=== PATIENT | female | born 1955 | race Caucasian/White ===

== ENCOUNTER 2018-07-25 07:38 | Inpatient (IN) | payer OTHER ==
[2018-07-25] MEDS ORDERED: NA CHLORIDE 0.9% 500 ML ONE (08:09)
[2018-07-25 08:36] LABS: Absolute Lymphocytes (CBC) 0.2 K/uL (0.7-4.9); Absolute Neutrophil 19.7 K/uL (1.8-8.0); Basophils % 0.2 % (0-1.3); Hematocrit 50.4 % (36.0-45.0); Lymphocytes % 1.2 % (15.3-44.8); MCH 30.9 pg (27.0-35.0); MCV 92.7 fL (80-100); MPV 8.1 fL (7.6-11.3); Monocytes % 4.8 % (3.3-12.3); RBC Red Blood Cell Count 5.44 M/uL (3.86-4.86)
[2018-07-25 08:47] LABS: Albumin 3.7 g/dL (3.4-5.0); Bilirubin Direct 0.3 mg/dL (0-0.2); Bilirubin Total 0.9 mg/dL (0.2-1.0); Potassium 4.8 mmol/L (3.5-5.1); Protein, Total 8.1 g/dL (6.4-8.2)
--- NOTE | 2018-07-25 09:31 | RAD REPORT ---
EXAM DESCRIPTION: CT - Abdomen Pelvis Wo Contrast - 07/25/2018 9:16 am CLINICAL HISTORY: Abdominal pain. vomiting;Abd pain COMPARISON: Abdomen Pelvis W Contrast dated 11/22/2017; CT ABD PELVIS W CONTRAST dated 09/05/2013; CT ABD PELVIS W CONTRAST dated 06/06/2007 TECHNIQUE: CT imaging of the abdomen and pelvis was performed without contrast. Solid organ, bowel a nd vascular assessment is limited due to lack of IV and oral contrast. All CT scans are performed using dose optimization technique as appropriate and may include automated exposure control or mA/KV adjustment according to patient size. FINDINGS: Linear subsegmental atelectasis is present in both lung bases posteriorly. The liver, spleen, pancreas, adrenal glands and kidneys are within normal limits for a limited non-co ntrast examination. Free intraperitoneal air is not suspected. Stool is present in a few mildly prominent jejunal small b owel loops in the central abdomen which are slightly thickened and slightly dilated. No intra-abdomin al abscess. Trace pelvic free fluid. The majority of the colon is surgically absent with a right lowe r quadrant ostomy site noted. No pneumatosis coli seen. The osseous structures are within normal limits. IMPRESSION: There is prominent retained stool in several jejunal loops in the central abdomen which are slightly thickened and slightly dilated. This may indicate a mild mechanical obstruction is prese nt in this region. No severe bowel obstruction is suspected, however. A limited non-contrast examination was performed as detailed.
--- NOTE | 2018-07-25 10:08 | EKG ---
Test Date: 2018-07-25 Test Time: 07:52:19 Communications Supervisor: TRISHA MEASUREMENT RESULTS: Intervals: Rate: 97 MD: 118 QRSD: 78 QT: 376 QTc: 477 Saxe: P: 71 MD: 118 QRS: 74 T: 74 INTERPRETIVE STATEMENTS: Sinus rhythm with premature atrial complexes Otherwise normal ECG Compared to ECG 02/05/2017 07:21:06 Atrial premature complex(es) now present Electronically Signed On 07-25-18 10:08:01 TAX CREDIT LEASING CONSULTANT by Theo Rubin
--- NOTE | 2018-07-25 10:24 | ER ---
Nurse's Notes [facility] Name: Millie Brannon Age: 62 yrs Sex: Female : 1955 Arrival Date: 07/25/2018 Time: 07:47 Bed 18 Private MD: Diagnosis: Abdominal and pelvic pain;Mechanical Bowel Obstruction Presentation: 07/25 07:48 Presenting complaint: EMS states: She vomited 3-4 times last night since 1900 and has jl7 had some diarrhea in her colostomy bag. Transition of care: patient was received from another setting of care ([facility]), [facility]. Onset of symptoms was July 24, 2018 at 19:00. Risk Assessment: Do you want to hurt yourself or someone else? Patient reports no desire to harm self or others. Initial Sepsis Screen: Does the patient meet any 2 criteria? No. Patient's initial sepsis screen is negative. Does the patient have a suspected source of infection? No. Patient's initial sepsis screen is negative. Care prior to arrival: None. 07:48 Method Of Arrival: EMS: [employer] [facility] emergency room 07:48 Acuity: BANDAR 3 jl7 Triage Assessment: 07:55 General: Appears in no apparent distress. uncomfortable, ill, Behavior is calm, jl7 cooperative. Pain: Denies pain. EENT: No signs and/or symptoms were reported regarding the EENT system. Neuro: Level of Consciousness is awake, alert, obeys commands, Oriented to person, place, time, situation. Cardiovascular: Patient's skin is warm and dry. Respiratory: Airway is patent Respiratory effort is even, unlabored, Respiratory pattern is regular, symmetrical. GI: Bowel sounds present X 4 quads. Reports diarrhea, nausea, vomiting. : No signs and/or symptoms were reported regarding the genitourinary system. Derm: Skin is pink, warm \T\ dry. Musculoskeletal: No signs and/or symptoms reported regarding the musculoskeletal system. Historical: - Allergies: 07:55 Lyrica; jl7 07:55 PENICILLINS; jl7 - Home Meds: 07:55 aspirin 81 mg Oral chew 1 tab once daily [Active]; atorvastatin 20 mg Oral tab 1 tab jl7 once daily [Active]; benztropine 1 mg Oral tab 1 tab 2 times per day [Active]; cholecalciferol (vitamin D3) 50,000 unit Oral cap [Active]; Cymbalta 60 mg Oral cpDR 2 caps once daily [Active]; folic acid 1 mg Oral tab 1 tab once daily [Active]; Latuda 80 mg oral tab [Active]; levothyroxine 125 mcg tab 1 tab once daily [Active]; melatonin 3 mg Oral tab bedtime [Active]; [place] 5-325 mg Oral tab 1 tab twice a day [Active]; - PMHx: 07:55 Myocardial infarction; Chronic pain; Hyperlipidemia; Hypertension; Depression; CHF; jl7 Anxiety; chronic kidney disease; Bipolar disorder; colostomy; Hypothyroidism; - Immunization history:: Adult Immunizations up to date. - Social history:: Smoking status: Patient uses tobacco products, smokes one pack cigarettes per day. - Ebola Screening: : No symptoms or risks identified at this time. Screenin:58 Abuse screen: Denies threats or abuse. Denies injuries from another. Nutritional jl7 screening: No deficits noted. Tuberculosis screening: No symptoms or risk factors identified. 08:00 Fall Risk IV access (20 points). Gait- Weak (10 pts.). Mental Status- Oriented to own jl7 ability (0 pts). Total Huynh Fall Scale indicates Low Risk Score (25-44 pts). Fall prevention measures have been instituted. Side Rails Up X 2 Placed close to Nursing Station Frequent Obs/Assesments occuring As available Patient and Family Educated on Fall Prevention Program and strategies. Assessment: 07:58 General: See triage assessment. jl7 09:00 Reassessment: Patient appears in no apparent distress at this time. Patient and/or jl7 family updated on plan of care and expected duration. Pain level reassessed. Patient is alert, oriented x 3, equal unlabored respirations, skin warm/dry/pink. 10:00 Reassessment: Patient appears in no apparent distress at this time. No changes from jl7 previously documented assessment. Patient and/or family updated on plan of care and expected duration. Pain level reassessed. Patient is alert, oriented x 3, equal unlabored respirations, skin warm/dry/pink. 11:00 Reassessment: No changes from previously documented assessment. Pt laying in bed with jl7 eyes closed, respiration even and unlabored, no signs of distress noted at this time. 12:12 Reassessment: Patient appears in no apparent distress at this time. Patient and/or jl7 family updated on plan of care and expected duration. Pain level reassessed. Patient is alert, oriented x 3, equal unlabored respirations, skin warm/dry/pink. Dr. Rodríguez at bedside. 13:00 Reassessment: Patient appears in no apparent distress at this time. Patient and/or jl7 family updated on plan of care and expected duration. Pain level reassessed. Patient is alert, oriented x 3, equal unlabored respirations, skin warm/dry/pink. 14:04 Reassessment: No changes from previously documented assessment. Patient and/or family jl7 updated on plan of care and expected duration. Pain level reassessed. Patient is alert, oriented x 3, equal unlabored respirations, skin warm/dry/pink. Vital Signs: 07:55 BP 130 / 58; Pulse 93; Resp 18 S; Temp 99.3(O); Pulse Ox 91% on R/A; Weight 90.72 kg jl7 (R); Pain 0/10; 08:31 BP 116 / 97; Pulse 92; Resp 14 S; Pulse Ox 97% on R/A; jl7 09:30 BP 137 / 81; Pulse 89; Resp 16 S; Pulse Ox 94% on R/A; jl7 12:24 BP 152 / 64; Pulse 71; Resp 16 S; Pulse Ox 100% on R/A; jl7 14:00 BP 130 / 65; Pulse 101; Resp 18 S; Temp 100.2(O); Pulse Ox 98% on R/A; jl7 ED Course: 07:47 Patient arrived in ED. jl7 07:48 Shantanu Davey MD is Attending Physician. kdr 07:49 Triage completed. jl7 07:55 Arm band placed on right wrist. jl7 07:58 Patient has correct armband on for positive identification. Placed in gown. Bed in low jl7 position. Call light in reach. Side rails up X2. Pulse ox on. NIBP on. 07:59 EKG done, by copier technician. reviewed by Shantanu Davey MD. tc 08:05 Radiology exam delayed due to lab results not completed at this time. (BUN/Creatinine). 08:18 Teja Velásquez, KARO is Primary Nurse. jl7 08:19 Initial lab(s) drawn, by me, sent to lab. Inserted saline lock: 22 gauge in left jl7 antecubital area, using aseptic technique. Blood collected. 08:51 Notified ED physician of a critical lab result(s). WBC=21. iw 09:18 Abdomen In Process Unspecified. EDMS 10:19 Lakshmi Martinez MD is Hospitalizing Provider. kdr 10:49 Notified ED physician of a critical lab result(s). 18% bands. dm5 11:13 Hospitalizing Provider role handed off by Lakshmi Martinez MD bd 11:13 Shantanu Davey MD is Hospitalizing Provider. bd 11:13 Hospitalizing Provider role handed off by Shantanu Davey MD bd 11:13 Jefferson Rodríguez MD is Hospitalizing Provider. bd 11:13 Hospitalizing Provider role handed off by Jefferson Rodríguez MD bd 11:13 Shantanu Davey MD is Hospitalizing Provider. bd 11:14 Hospitalizing Provider role handed off by Shantanu Davey MD bd 11:14 Jefferson Rodríguez MD is Hospitalizing Provider. bd 14:04 No provider procedures requiring assistance completed. Patient admitted, IV remains in jl7 place. intact, No redness/swelling at site. Administered Medications: 08:05 Drug: NS 0.9% 500 ml Volume: 500 ml; Route: IV; Rate: 1 bolus; Site: left antecubital; jl7 08:45 Follow up: IV Status: Completed infusion jl7 Outcome: 10:21 Decision to Hospitalize by Provider. kdr 14:33 Admitted to Tele accompanied by tech, via wheelchair, room 405, with chart, Report jl7 called to KARO Zaman 14:33 Condition: stable 14:33 Discharge instructions given to patient, Instructed on the need for admit, Demonstrated understanding of instructions. 14:36 Patient left the ED. jl7 Signatures: Dispatcher [employer] EDMS Joanne Fraga Deana, RN KARO dmShantanu Jara MD MD kdr Hagler, Ervin eh Williams, Irene, RN RN Rachael Muir, jet ski mechanic EKG Teja Tong RN RN jl7
--- NOTE | 2018-07-25 10:24 | EDPHYS ---
Physician Documentation [facility] Name: Millie Brannon Age: 62 yrs Sex: Female : 1955 Arrival Date: 07/25/2018 Time: 07:47 Bed 18 Private MD: ED Physician Shantanu Davey HPI: 07/25 07:59 This 62 yrs old Female presents to ER via EMS with complaints of Vomiting. kdr 07:59 The patient presents to the emergency department with nausea, that is mild, vomiting, kdr that is intermittent, abdominal pain, of the umbilical area. Onset: The symptoms/episode began/occurred gradually, last night. Possible causes: unknown. The symptoms are aggravated by nothing. The symptoms are alleviated by nothing. Associated signs and symptoms: Pertinent positives: abdominal pain, nausea, vomiting, Pertinent negatives: anorexia, belching, constipation, diarrhea, dysuria, fever, flatulence, GI bleeding, hematuria, vaginal discharge. Severity of symptoms: At their worst the symptoms were moderate in the emergency department the symptoms have improved mildly. The patient has not experienced similar symptoms in the past. The patient has not recently seen a physician. Historical: - Allergies: 07:55 Lyrica; jl7 07:55 PENICILLINS; jl7 - Home Meds: 07:55 aspirin 81 mg Oral chew 1 tab once daily [Active]; atorvastatin 20 mg Oral tab 1 tab jl7 once daily [Active]; benztropine 1 mg Oral tab 1 tab 2 times per day [Active]; cholecalciferol (vitamin D3) 50,000 unit Oral cap [Active]; Cymbalta 60 mg Oral cpDR 2 caps once daily [Active]; folic acid 1 mg Oral tab 1 tab once daily [Active]; Latuda 80 mg oral tab [Active]; levothyroxine 125 mcg tab 1 tab once daily [Active]; melatonin 3 mg Oral tab bedtime [Active]; Roy 5-325 mg Oral tab 1 tab twice a day [Active]; - PMHx: 07:55 Myocardial infarction; Chronic pain; Hyperlipidemia; Hypertension; Depression; CHF; jl7 Anxiety; chronic kidney disease; Bipolar disorder; colostomy; Hypothyroidism; - Immunization history:: Adult Immunizations up to date. - Social history:: Smoking status: Patient uses tobacco products, smokes one pack cigarettes per day. - Ebola Screening: : No symptoms or risks identified at this time. ROS: 07:59 Constitutional: Negative for fever, chills, and weight loss, Eyes: Negative for injury, kdr pain, redness, and discharge, ENT: Negative for injury, pain, and discharge, Neck: Negative for injury, pain, and swelling, Cardiovascular: Negative for chest pain, palpitations, and edema, Respiratory: Negative for shortness of breath, cough, wheezing, and pleuritic chest pain, Back: Negative for injury and pain, : Negative for injury, bleeding, discharge, and swelling, MS/Extremity: Negative for injury and deformity, Skin: Negative for injury, rash, and discoloration, Neuro: Negative for headache, weakness, numbness, tingling, and seizure activity. Psych: Negative for depression, anxiety, suicide ideation, homicidal ideation, and hallucinations, Allergy/Immunology: Negative for hives, rash, and allergies, Endocrine: Negative for neck swelling, polydipsia, polyuria, polyphagia, and marked weight changes, Hematologic/Lymphatic: Negative for swollen nodes, abnormal bleeding, and unusual bruising. 07:59 Abdomen/GI: Positive for abdominal pain, nausea and vomiting, Negative for diarrhea, constipation, abdominal cramps, abdominal distension, anorexia, dysphagia, hematemesis, black/tarry stool, rectal pain, rectal bleeding, bowel incontinence. Exam: 07:59 Constitutional: This is a well developed, well nourished patient who is awake, alert, kdr and in no acute distress. Head/Face: Normocephalic, atraumatic. Eyes: Pupils equal round and reactive to light, extra-ocular motions intact. Lids and lashes normal. Conjunctiva and sclera are non-icteric and not injected. Cornea within normal limits. Periorbital areas with no swelling, redness, or edema. Neck: Trachea midline, no thyromegaly or masses palpated, and no cervical lymphadenopathy. Supple, full range of motion without nuchal rigidity, or vertebral point tenderness. No Meningismus. Chest/axilla: Normal chest wall appearance and motion. Nontender with no deformity. No lesions are appreciated. Cardiovascular: Regular rate and rhythm with a normal S1 and S2. No gallops, murmurs, or rubs. Normal PMI, no JVD. No pulse deficits. Respiratory: Lungs have equal breath sounds bilaterally, clear to auscultation and percussion. No rales, rhonchi or wheezes noted. No increased work of breathing, no retractions or nasal flaring. Back: No spinal tenderness. No costovertebral tenderness. Full range of motion. Skin: Warm, dry with normal turgor. Normal color with no rashes, no lesions, and no evidence of cellulitis. MS/ Extremity: Pulses equal, no cyanosis. Neurovascular intact. Full, normal range of motion. Neuro: Awake and alert, GCS 15, oriented to person, place, time, and situation. Cranial nerves II-XII grossly intact. Motor strength 5/5 in all extremities. Sensory grossly intact. Cerebellar exam normal. Normal gait. Psych: Awake, alert, with orientation to person, place and time. Behavior, mood, and affect are within normal limits. 07:59 Abdomen/GI: Inspection: abdomen appears normal, obese Bowel sounds: active, all quadrants, Palpation: mild abdominal tenderness, in the umbilical area. Vital Signs: 07:55 BP 130 / 58; Pulse 93; Resp 18 S; Temp 99.3(O); Pulse Ox 91% on R/A; Weight 90.72 kg jl7 (R); Pain 0/10; 08:31 BP 116 / 97; Pulse 92; Resp 14 S; Pulse Ox 97% on R/A; jl7 09:30 BP 137 / 81; Pulse 89; Resp 16 S; Pulse Ox 94% on R/A; jl7 12:24 BP 152 / 64; Pulse 71; Resp 16 S; Pulse Ox 100% on R/A; jl7 14:00 BP 130 / 65; Pulse 101; Resp 18 S; Temp 100.2(O); Pulse Ox 98% on R/A; jl7 MDM: 07:59 Data reviewed: vital signs, nurses notes, lab test result(s), radiologic studies. kdr Counseling: I had a detailed discussion with the patient and/or guardian regarding: the historical points, exam findings, and any diagnostic results supporting the discharge/admit diagnosis, lab results, radiology results. 10:21 Patient medically screened. kdr 07/25 07:59 Order name: Basic Metabolic Panel; Complete Time: 10:09 kdr 07/25 07:59 Order name: CBC with Diff; Complete Time: 12:59 kdr 07/25 07:59 Order name: Creatinine for Radiology; Complete Time: 10:09 [facility] 07/25 07:59 Order name: Hepatic Function; Complete Time: 10: [facility] 07/25 07:59 Order name: Lipase; Complete Time: 10: [facility] 07/25 10:49 Order name: Manual Differential; Complete Time: 12:59 [facility] 07/25 07:59 Order name: IV Saline Lock; Complete Time: 08:19 [facility] 07/25 07:59 Order name: Labs collected and sent; Complete Time: 08:19 [facility] 07/25 07:59 Order name: EKG - Nurse/Tech; Complete Time: 07:59 [facility] 07/25 08:21 Order name: EKG Electrocardiogram [facility] 07/25 09:03 Order name: Abdomen ; Complete Time: 10:09 [facility] Administered Medications: 08:05 Drug: NS 0.9% 500 ml Volume: 500 ml; Route: IV; Rate: 1 bolus; Site: left antecubital; jl7 08:45 Follow up: IV Status: Completed infusion jl7 Disposition: 07/25/18 10:21 Hospitalization ordered by Jefferson Rodríguez for Inpatient Admission. Preliminary diagnosis are Abdominal and pelvic pain, Mechanical Bowel Obstruction. - Bed requested for Telemetry/MedSurg (Inpatient). - Status is Inpatient Admission. jl7 - Condition is Fair. - Problem is new. - Symptoms are unchanged. UTI on Admission? No Signatures: Dispatcher [employer] [facility] Joanne Fraga Kevin, MD MD kdr Teja Velásquez RN RN jl7 Corrections: (The following items were deleted from the chart) 09:02 07:59 Abdomen Pelvis W Con+CT.RAD.BRZ ordered. [facility] : 10:21 Hospitalization Ordered by Lakshmi Martinez MD for Inpatient Admission. Preliminary bd diagnosis is Abdominal and pelvic pain; Mechanical Bowel Obstruction. Bed requested for Telemetry/MedSurg (Inpatient). Status is Inpatient Admission. Condition is Fair. Problem is new. Symptoms are unchanged. UTI on Admission? No. kdr 13:39 11:14 07/25/2018 10:21 Hospitalization Ordered by Jefferson Rodríguez MD for Inpatient bd Admission. Preliminary diagnosis is Abdominal and pelvic pain; Mechanical Bowel Obstruction. Bed requested for Telemetry/MedSurg (Inpatient). Status is Inpatient Admission. Condition is Fair. Problem is new. Symptoms are unchanged. UTI on Admission? No. bd 14:36 13:39 07/25/2018 10:21 Hospitalization Ordered by Jefferson Rodríguez MD for Inpatient jl7 Admission. Preliminary diagnosis is Abdominal and pelvic pain; Mechanical Bowel Obstruction. Bed requested for Telemetry/MedSurg (Inpatient). Status is Inpatient Admission. Condition is Fair. Problem is new. Symptoms are unchanged. UTI on Admission? No. bd
[2018-07-25 10:48] LABS: Blood Morphology Comment NOT SEEN (NOT SEEN); Platelet Estimate ADEQ
[2018-07-25] MEDS ORDERED: ONDANSETRON 4 MG/2 ML VIAL IV PRN (11:39)
[2018-07-25] MEDS ORDERED: ALBUTEROL 2.5 MG/3 ML NEB SOL NEB PRN (11:39)
[2018-07-25] MEDS ORDERED: MORPHINE 4 MG/ML SYR IV PRN (11:39)
[2018-07-25] MEDS ORDERED: IPRATROPIUM BROM 0.5MG/2.5ML NEB PRN (11:39)
[2018-07-25] MEDS ORDERED: ACETAMINOPHEN 650MG/RECT SUPP PR PRN (11:39)
[2018-07-25 15:44] VITALS: BMI 36.6
[2018-07-25] MEDS ORDERED: NA CHLORIDE 0.9% 1,000 ML IV ONE (16:01)
[2018-07-25] MEDS: D5 0.45 NS 1,000 ML IV SCH ×2 (16:11→22:00)
[2018-07-25] MEDS: CIPROFLOXACIN 400mg IV 400 MG/200 ML BAG IV SCH ×2 (16:11→21:23)
[2018-07-25] MEDS: METRONIDAZOLE 500mg IVPB 500 MG/100 ML BAG IV SCH (17:21)
--- NOTE | 2018-07-25 18:50 | P.INFCA ---
Sepsis Focused Assessment - Sepsis Screen Result Severe Sepsis: Negative Septic Shock: Negative - Evaluation Current stage of sepsis: Severe sepsis - Vital Signs Reviewed: Yes Temperature: 99.3 F Heart rate: 95 Blood Pressure: 120/69 Respiratory Rate: 20 O2 Sat by Pulse Oximetry: 92 - Examination Date exam was performed: 07/25/18 Time exam was performed: 18:49 Heart: Regular rate/rhythm, S1, S2 Lungs: Dull, Decreased breath sounds (at bases) Peripheral pulses: 3+ Normal Peripheral pulse location: Radial Capillary refill: <2 Seconds Skin examination: Normal turgor Comments: Elevated lactate. Bolus of IVFs given
[2018-07-25] MEDS: MORPHINE 4 MG/ML SYR IV PRN (21:23)
--- NOTE | 2018-07-26 00:06 | HP ---
Date of Admission: 07/25/2018 Chief Complaint: Abdomina pain, nausea, vomiting. Dynamics Ax Technical Architect: Dr. Francisco, General Surgery. History Of Present Illness: The patient is a 62-year-old female with past medical historyof COPD, CH F, hypertension, chronic kidney disease, bipolar disorder, hypothyroidism, and history of colostomy w ith status post colon resection in 2010. The patient is a resident of long term, was in her usual state of health until the day prior to admission. The patient experienced an abdominal pain which w as sharp, nonradiating, generalized, associated with nausea and vomiting. The patient's symptoms are constant, moderate, progressively worsening. She came into the ER for further evaluation. Upon arr ival, she had a white count of 18,000 with bands. She did have some elevated creatinine at 1.7, whic h is above her baseline. CT scan of the abdomen was done, which showed a partial mechanical small nolvia wel obstruction, trace pelvic free fluid, majority of colon absent with right lower quadrant ostomy s ite noted. The patient was then referred for admission. When seen in the ER, she was awake, alert, oriented x3, some moderate distress. Past Medical History: COPD, CHF, hypertension, chronic kidney disease, bipolar disorder, hypothyroid ism. Past Surgical History: Colostomy due to colon perforation. Allergies: TO PENICILLIN AND PREGABALIN. Medications: List reviewed. Social History: The patient denies any illicit drug use, alcohol use. The patient does smoke about half a pack per day. The patient is a resident of long term. Family History: Mother had heart disease. Review of Systems: Ten point system reviewed, negative except as per HPI. Physical Examination: Vital Signs: Blood pressure 130/58, pulse 93, respirations 18, O2 91% on room air, temperature 99.3. General: Awake, alert, oriented x3. Well-appearing female, in some moderate distress due to pain. Morbidly obese. HEENT: Normocephalic, atraumatic. PERRLA, EOMI. Dry mucous membranes. Oropharynx is clear. The p atient is edentulous. Conjunctiva anicteric. Neck: Supple. No JVD. Trachea midline. CV: S1, S2. Regular rate and rhythm. Peripheral pulses are present. No murmurs. Gastrointestinal: Abdomen is soft. Tenderness to palpation. Colostomy does have some stool. Bowel sounds hypoactive. No rebound or guarding. Extremities: No clubbing, cyanosis. The patient does have some trace pedal edema. Neuro: Cranial nerves 2 through 12 intact grossly. No focal neurological deficit. Speech is normal . Skin: No rashes. Normal skin turgor. Psych: Mood is okay. Affect is full. Insight and judgment are fair. Laboratory Data: Sodium 135, potassium 4.8, chloride 96, CO2 28, BUN 14, creatinine 1.7, glucose 142 , calcium 9.3, lipase 74. WBC 21, H and H 16.8/50.4, platelets 340, neutrophils 93%, bands 18. CT s can abdomen and pelvis without contrast shows probable retained stool and several jejunal loops in ce ntral abdomen, which are slightly thickened and slightly dilated, may indicate mild mechanical obstru ction. No severe bowel obstruction is suspected, however. Majority of colon surgically absent with a right quadrant ostomy site noted. No pneumatosis coli. Trace pelvic free fluid. Linear subsegmen joo atelectasis present in both lungs posteriorly. EKG shows sinus rhythm with premature atrial complexes at a rate of 97. Assessment And Plan: A 62-year-old female with: 1.Mechanical small bowel obstruction. We will keep her n.p.o. We will hold off on NG tube placemen t. We will continue with conservative treatment. Continue IV fluids and pain medications. Dr. Brandon kamara with General Surgery team consulted. The patient does have history of major abdominal surgery in the past and recurrent small bowel obstructions as well. 2.Acute on chronic kidney disease stage 3. 3.Neutrophilic leukocytosis with bandemia, likely related to colon source. We will add IV antibioti cs and we will monitor, but the patient is not septic at this point. 4.Chronic bronchitis. We will continue bronchodilators as needed. 5.Congestive heart failure. Echocardiogram from 2017 show EF of 53%, diastolic dysfunction, chronic . 6.Essential hypertension, stable. Resume home medications as appropriate. 7.Bipolar disorder. 8.Hypothyroidism. Continue medications once the patient is tolerating p.o. 9.Morbid obesity. 10.Gastrointestinal and deep venous thrombosis prophylaxis addressed. Plan: Admit the patient to [facility], [facility] as inpatient. Length of stay greater than 48 hours. /JUAN Voice ID: [id number]
[2018-07-26] MEDS: METRONIDAZOLE 500mg IVPB 500 MG/100 ML BAG IV SCH ×3 (00:37→17:14)
[2018-07-26] MEDS: D5 0.45 NS 1,000 ML IV SCH ×2 (00:39→08:00)
[2018-07-26] MEDS: MORPHINE 4 MG/ML SYR IV PRN ×2 (01:25→06:20)
[2018-07-26 02:44] LABS: Urine Appearance CLOUDY; Urine Bilirubin NEGATIVE (NEG); Urine Blood TRACE (NEG); Urine Color YELLOW; Urine Glucose NEGATIVE (NEG); Urine Protein NEGATIVE (NEG); Urine Specific Gravity 1.015 (1.005-1.030); Urine Urobilinogen 0.2 mg/dL (0.2-1.0); Urine pH 5.5 (5.0-7.0)
[2018-07-26 02:47] LABS: Urine Microscopic Reflex ORDER UMIC
[2018-07-26 02:56] LABS: Urine Culture Reflex Order NOT NEEDED
[2018-07-26 02:57] LABS: Urine Amorphous Sediment 3+ /HPF (NONE SEEN); Urine Bacteria 20-50 /HPF (<20); Urine RBC <5 /HPF (NONE SEEN)
[2018-07-26 06:39] LABS: Absolute Lymphocytes (CBC) 1.2 K/uL (0.7-4.9); Absolute Monocytes 0.6 K/uL (0.1-1.3); Absolute Neutrophil 7.8 K/uL (1.8-8.0); Basophils % 0.2 % (0-1.3); Eosinophils % 0.3 % (0-4.4); Hematocrit 38.6 % (36.0-45.0); MCH 31.1 pg (27.0-35.0); MCV 93.7 fL (80-100); MPV 7.8 fL (7.6-11.3); Monocytes % 6.1 % (3.3-12.3); RBC Red Blood Cell Count 4.12 M/uL (3.86-4.86)
[2018-07-26 06:43] LABS: Albumin 2.8 g/dL (3.4-5.0); Bilirubin Total 0.6 mg/dL (0.2-1.0); Magnesium 2.1 mg/dL (1.8-2.4); Phosphorus 3.4 mg/dL (2.5-4.9); Potassium 3.9 mmol/L (3.5-5.1); Protein, Total 6.3 g/dL (6.4-8.2)
[2018-07-26] MEDS: CIPROFLOXACIN 400mg IV 400 MG/200 ML BAG IV SCH ×2 (09:04→22:12)
[2018-07-26] MEDS ORDERED: FUROSEMIDE 40 MG/4 ML VIAL IV ONE (11:33)
--- NOTE | 2018-07-26 15:34 | CON ---
Date of Consultation: 07/25/2018 Brief History Of Present Illness: The patient is a 62-year-old female with a past medical history of COPD; CHF; hypertension; CKD; bipolar disorder; hypothyroidism; and history of colostomy, status post colon resection in 2018; who was at a skilled nursing in her usual state of health until the day of prior authorization. She had some sharp abdominal pain, nausea, vomiting, and felt dehydrate d. The pain got significantly worse over the course of the day. She came to the ER with the above-s tated complaint. She had a white count at that time and was admitted with abdominal pain as describe d above. Past Medical History: Significant for COPD, CHF, hypertension, CKD, bipolar disorder, hypothyroidism as above. Past Surgical History: Colostomy due to colon perforation. She is unsure of any details regarding t his. Allergies: PENICILLIN AND PREGABALIN. Medications: Include at home: Aspirin, Lipitor, benztropine, vitamin D3, Cymbalta, folic acid, Norc o, Synthroid, Latuda, melatonin. Social History: She denies alcohol or recreational drug use. She does admit to a half pack of Rambus ng per day. She lives in a skilled nursing. Family History: Mother had heart disease. Review of Systems: A 10-point review of systems other than HPI, denies. Physical Examination: Vital Signs: At the time of my examination, her BMI is 36.6. Blood pressure of 137/81, respiratory rate is 16, pulse is 89, temperature 99.3. General: She is awake, alert, oriented. Psychiatric: She is appropriate and conversive. HEENT: She is normocephalic. Her mucous membranes are somewhat dry. Oropharynx is clear. Dentitio n is poor. Neck: Supple. No JVD. Chest: Normal expansion and excursion. Abdomen: Focused examination of the abdomen shows diffuse abdominal pain over an obese abdomen. She has a right lower quadrant colostomy, which is currently functioning and the bag is almost completel y full at this time. She states that it has increased its output since being brought to the hospital . She has diffuse abdominal pain with no peritoneal signs. There is no focal peritonitis. No rebou nd. No guarding. Well-healed surgical scars are evident. Laboratory Data: She had a laboratory exam, which revealed a white blood cell count of 21.0, hemoglo bin 16.8 over hematocrit of 50.4, platelet count is 340, neutrophils are 93%, her bands were 18. Sod ium 135, potassium 4.8, chloride of 96, carbon dioxide 28, BUN 14, creatinine 1.7, glucose is 142. L actic acid was 1.9. She had a CT scan performed of the abdomen and pelvis. The official indication is prominent retained stool in several jejunal loops in the central abdomen, which are slightly thick ened and slightly dilated. This may indicate a mechanical bowel obstruction in the presence of this region. No severe bowel obstruction is suspected however. Assessment And Plan: This is a 62-year-old female, who comes in with what appears to be a partial sm all-bowel obstruction versus ileus due to metabolic and medical comorbidities. 1.IV fluid hydration. I believe she is dehydrated. 2.Electrolyte management. 3.Serial abdominal exams. 4.I do not find the patient has a surgical indication at this time. We will follow her clinically. Continue n.p.o. at this point, and start clear liquid diet once she advances and improves with the a bdominal pain and continues to have improved output from her ostomy. VERONICA/JUAN Voice ID: [id number] Report ID: [id number]
--- NOTE | 2018-07-26 15:55 | PN ---
Subjective: The patient seen and examined, chart reviewed, and case discussed with RN and Dr. Nikki max. The patient stated that her pain is significantly improved. She is passing gas. She was able to tolerate clear liquid. Review of Systems: Negative except as above. Medications: List reviewed. Physical Examination: Vital Signs: Temperature 97.2, heart rate 82, blood pressure 122/57, respirations 20, O2 92% on 3 L via nasal cannula. General: Awake, alert, oriented x3. Appears older than stated age. Ill-appearing female, obese. CV: S1 and S2. Peripheral pulses present. Regular rate and rhythm. No murmurs. Respiratory: Diminished breath sounds at the bases. No wheezing. No stridor. Gastrointestinal: Abdomen is soft. No tenderness to palpation. Mild distention. Colostomy in plac e with stool. Extremities: No clubbing, cyanosis, edema. Neurologic: Nonfocal. Laboratory Data: Sodium 137, potassium 3.9, chloride 104, CO2 27, BUN 18, creatinine is 1.2, glucose 120, calcium 8, phosphorus 3.4, magnesium 2.1. WBC 9.6, H and H 12.8 and 38.6, platelets 257, neutr ophils 81%, no bands. Urine culture pending. C diff pending. Blood culture is also pending. Assessment: A 62-year-old female with: 1.Mechanical small bowel obstruction. We will start on full liquid diet and advance as tolerated. The patient is passing gas through the ostomy and has stool production. Appreciate Dr. Francisco's inp ut. Continue with conservative management, likely secondary to adhesions. 2.Joixz-rj-smmnfgs kidney disease stage 3. Creatinine is normalized. GFR is 46. We will continue to monitor creatinine. We will discontinue IV fluids as the patient is tolerating diet. 3.Obesity, BMI 36.6. 4.Bilateral atelectasis. We will continue incentive spirometer. 5.Sepsis. Procalcitonin was elevated. The patient is hypotensive, needed IV fluid resuscitation an d clearly has some colitis along with small bowel obstruction. We will continue with empiric antibio tics. Cultures are pending. Improving, white blood cell count is normalized. 6.Chronic obstructive pulmonary disease with chronic bronchitis. Continue nebulizers p.r.n. 7.Congestive heart failure, ejection fraction 53%, diastolic dysfunction, [id number]. The pat ient is retaining some fluid. We will give 40 mg of Lasix IV and monitor I's and O's. 8.Essential hypertension, stable. 9.Bipolar disorder. 10.Hypothyroidism. We will resume Synthroid. 11.Gastrointestinal and deep venous thrombosis prophylaxis addressed. Plan: Continue to monitor closely. Continue antibiotics. Sepsis is improving. We will obtain PT e valuation. Likely discharge in the next 24-48 hours once tolerating solid food. SA/MODL Voice ID: [id number] Report ID: [id number]
[2018-07-26] MEDS: DULOXETINE 30 MG CAP PO SCH (18:35)
[2018-07-26] MEDS: FOLIC ACID 1 MG TABLET PO SCH (18:36)
[2018-07-26] MEDS: ASPIRIN 81 MG CHEWABLE TABLET PO SCH (18:36)
[2018-07-26] MEDS: MELATONIN 3 MG TABLET PO SCH (22:11)
[2018-07-26] MEDS: HYDROCODONE/APAP 7.5/325 MG TAB PO SCH (22:11)
[2018-07-26] MEDS: ATORVASTATIN 20 MG TAB PO SCH (22:11)
[2018-07-26] MEDS: BENZTROPINE 1 MG TAB PO SCH (22:16)
[2018-07-27] MEDS: METRONIDAZOLE 500mg IVPB 500 MG/100 ML BAG IV SCH ×3 (00:30→17:57)
[2018-07-27] MEDS: LEVOTHYROXINE SOD 0.125 MG TAB PO SCH (06:31)
[2018-07-27 07:13] LABS: Absolute Monocytes 0.4 K/uL (0.1-1.3); Absolute Neutrophil 4.7 K/uL (1.8-8.0); Basophils % 0.6 % (0-1.3); Hematocrit 37.9 % (36.0-45.0); MCH 30.5 pg (27.0-35.0); MCV 92.8 fL (80-100); MPV 7.4 fL (7.6-11.3); Monocytes % 6.5 % (3.3-12.3); RBC Red Blood Cell Count 4.08 M/uL (3.86-4.86)
[2018-07-27 07:23] LABS: Albumin 2.9 g/dL (3.4-5.0); Bilirubin Total 0.5 mg/dL (0.2-1.0); Potassium 3.5 mmol/L (3.5-5.1); Protein, Total 6.2 g/dL (6.4-8.2)
--- NOTE | 2018-07-27 09:23 | P.PN ---
Subjective Date of Service: 07/27/18 Chief Complaint: abdominal pain Subjective: Improving (Patient colostomy functioning well, good output, pain is now a mild ache intermittently, but she states essentially gone, tolerating diet well) Physical Examination - Vital Signs Temperature: 97.4 F Blood Pressure: 125/70 Pulse: 67 Respirations: 20 Pulse Ox (%): 95 - Physical Exam General: Alert, In no apparent distress, Cooperative Respiratory: Clear to auscultation bilaterally Gastrointestinal: Soft and benign (colostomy functional) Assessment And Plan - Current Problems (Diagnosis) (1) Partial small bowel obstruction Current Visit: Yes Status: Acute Plan: doing well - tolerating diet well - pain almost completely resolved - non-tender - colostomy functioning normally - ok to DC from surgical standpoint - follow up GI in 2-3 weeks after discharge
[2018-07-27] MEDS: HYDROCODONE/APAP 7.5/325 MG TAB PO SCH ×2 (09:57→20:13)
[2018-07-27] MEDS: BENZTROPINE 1 MG TAB PO SCH ×2 (09:57→20:14)
[2018-07-27] MEDS: ASPIRIN 81 MG CHEWABLE TABLET PO SCH (09:57)
[2018-07-27] MEDS: DULOXETINE 30 MG CAP PO SCH (09:58)
[2018-07-27] MEDS: FOLIC ACID 1 MG TABLET PO SCH (09:58)
[2018-07-27] MEDS: CIPROFLOXACIN 400mg IV 400 MG/200 ML BAG IV SCH ×2 (10:59→20:14)
--- NOTE | 2018-07-27 14:53 | RAD REPORT ---
EXAM DESCRIPTION: RAD - Chest Single View - 07/27/2018 2:48 pm CLINICAL HISTORY: increasing O2 need Chest pain. COMPARISON: Abdomen 1 View ([facility]) dated 11/24/2017; Chest Single View dated 02/04/2017; Chest Single Vi ew dated 06/28/2016; CHEST SINGLE VIEW dated 02/23/2015 FINDINGS: Portable technique limits examination quality. Small right pleural effusion is suspected with linear atelectasis or infiltrate in the right lung bas e. The lungs are otherwise grossly clear. The heart is mildly enlarged in size. No displaced fracture s.
[2018-07-27] MEDS ORDERED: FUROSEMIDE 40 MG/4 ML VIAL IV ONE (16:56)
[2018-07-27] MEDS: MELATONIN 3 MG TABLET PO SCH (20:13)
[2018-07-27] MEDS: ATORVASTATIN 20 MG TAB PO SCH (20:14)
--- NOTE | 2018-07-27 22:13 | PN ---
Date of Progress Note: 07/27/2018 Subjective: The patient seen and examined, chart reviewed, and case discussed with RN as well as Dr. Francisco. The patient's abdominal pain is resolved, having good output through the colostomy. The p atient, however, still continues to require supplemental oxygen and room air saturation is low in the 70s. Review of Systems: Negative except as above. Medications: List reviewed. Physical Examination: Vital Signs: Temperature 98.2, heart rate 79. Blood pressure 110/60, respirations 20, and O2 95% on 2 L. General: Awake, alert, and oriented x3. Morbidly obese female, somewhat ill-appearing, appears olde r than stated age. CV: S1, S2. Peripheral pulses present. No murmurs. Respiratory: Diminished breath sounds at the bases. No wheezing. Gastrointestinal: Abdomen is soft, nontender, and nondistended. Positive bowel sounds. Extremities: No clubbing, cyanosis, or edema. Neurologic: Nonfocal. Laboratory Data: Sodium 135, potassium 3.5, chloride 100, CO2 31, BUN 10, creatinine 1, glucose 99, and calcium 8.3. Procalcitonin 0.25. WBC 6.2, H and H 12.5 and 37.9, and platelets 221. Blood cult ure showing gram-negative rods. Urine culture shows mixed selma. Sputum culture pending. Assessment And Plan: A 62-year-old female with; 1.Mechanical small-bowel obstruction, now tolerating diet, passing gas through the ostomy, has good stool production. Cleared from Dr. Francisco's standpoint, resolved, likely secondary to adhesions. 2.Hypoxia, likely secondary to chronic obstructive pulmonary disease. The patient was not on oxygen at the nursing facility. Will need room air sats and perhaps require oxygen upon discharge. 3.Bacteremia. Gram-negative rods. We will follow up with culture, ID, and sensitivity. We will co ntinue IV antibiotics for now. 4.Sepsis, secondary to colitis and urinary tract infection. 5.Acute cystitis without hematuria. Urine culture did not show any growth. We will continue antibi otics. 6.Obesity, BMI 36.6. 7.Chronic obstructive pulmonary disease, chronic bronchitis. Continue nebulizer treatments p.r.n. 8.Congestive heart failure. EF 53%, diastolic dysfunction, acute on chronic. We will continue with diuresis. 9.Essential hypertension, stable. 10.Bipolar disorder. 11.Hypothyroidism. Continue Synthroid. 12.Gastrointestinal and deep venous thrombosis prophylaxis addressed. The patient is now having bacteremia. We will continue with IV antibiotics for now. Await ID and se nsitivity. The patient is unable to be weaned off oxygen. We will need to set up home oxygen. Cont inue diuresis. Likely discharge in the next 24-48 hours. /MODL Voice ID: [id number] Report ID: [id number]
[2018-07-28] MEDS: METRONIDAZOLE 500mg IVPB 500 MG/100 ML BAG IV SCH ×2 (00:58→09:00)
[2018-07-28 04:50] LABS: Absolute Lymphocytes (CBC) 0.8 K/uL (0.7-4.9); Absolute Monocytes 0.4 K/uL (0.1-1.3); Absolute Neutrophil 5.7 K/uL (1.8-8.0); Basophils % 0.5 % (0-1.3); Eosinophils % 0.8 % (0-4.4); Hematocrit 39.2 % (36.0-45.0); Lymphocytes % 11.7 % (15.3-44.8); MCH 30.8 pg (27.0-35.0); MCV 92.9 fL (80-100); MPV 7.7 fL (7.6-11.3); Monocytes % 6.2 % (3.3-12.3); RBC Red Blood Cell Count 4.22 M/uL (3.86-4.86)
[2018-07-28] MEDS: LEVOTHYROXINE SOD 0.125 MG TAB PO SCH (05:06)
[2018-07-28 05:22] LABS: Albumin 3.1 g/dL (3.4-5.0); Bilirubin Total 0.5 mg/dL (0.2-1.0); Potassium 3.2 mmol/L (3.5-5.1); Protein, Total 6.7 g/dL (6.4-8.2)
[2018-07-28] MEDS ORDERED: POTASSIUM CL SA 10 MEQ TAB PO ONE (08:21)
[2018-07-28] MEDS: HYDROCODONE/APAP 7.5/325 MG TAB PO SCH (08:58)
[2018-07-28] MEDS: ASPIRIN 81 MG CHEWABLE TABLET PO SCH (08:58)
[2018-07-28] MEDS: BENZTROPINE 1 MG TAB PO SCH (08:59)
[2018-07-28] MEDS: DULOXETINE 30 MG CAP PO SCH (08:59)
[2018-07-28] MEDS: CIPROFLOXACIN 400mg IV 400 MG/200 ML BAG IV SCH (08:59)
[2018-07-28] MEDS: FOLIC ACID 1 MG TABLET PO SCH (08:59)
[2018-07-28 10:37] VITALS: O2SAT 92
[2018-07-28 12:02] VITALS: BP 143/66; TEMP 98.3
--- NOTE | 2018-07-29 09:04 | DS ---
Date of Discharge: 07/28/2018 Consultants: Dr. Francisco with General Surgery. Admitting Diagnoses: 1. Mechanical small bowel obstruction. 2. Acute on chronic kidney disease stage 3. 3. Neutrophilic leukocytosis with bandemia, likely systemic inflammatory response syndrome. 4. Bronchitis. 5. Congestive heart failure, diastolic dysfunction, chronic. 6. Essential hypertension. 7. Bipolar disorder. 8. Hypothyroidism. 9. Obesity. Discharge Diagnoses: 1. Sepsis secondary to colitis and urinary tract infection. 2. Acute colitis. 3. Acute cystitis without hematuria. 4. Bacteremia secondary to gram-negative rods. 5. Mechanical small bowel obstruction, resolved. 6. Hypoxia secondary to chronic obstructive pulmonary disease. 7. Obesity, BMI 36.6. 8. Chronic obstructive pulmonary disease, chronic bronchitis. The patient does use home oxygen. 9. Congestive heart failure. EF 53%, diastolic dysfunction, acute on chronic. 10. Essential hypertension, stable. 11. Bipolar disorder. 12. Hypothyroidism. Hospital Course: The patient is a 62-year-old female, resident of senior care with past medical history of COPD on home oxygen, congestive heart failure, hypertension, chronic kidney disease, bipolar disorder, hypothyroidism, and history of colostomy, status post colon resection in 2010. The patient comes in with abdominal pain, nausea, vomiting. She was found to have partial mechanical small bowel obstruction on CT scan. She did have an elevated white count of 18,000 with bands and elevated creatinine of 1.7. The patient was started on treatment for small bowel obstruction that required NG tube placement , was kept p.o., and General Surgery was consulted. The patient was started on IV fluids and antiemetics. The patient recovered well from her small bowel obstruction, did not require any surgical treatment. The patient was then able to tolerate a clear liquid diet, which was advanced, and the patient did well with a regular diet. Of note, the patient initially came in with bandemia, however, initially her blood pressure was stable, did not show signs of sepsis. However, subsequently developed signs of sepsis. Her procalcitonin was high, her blood pressure decreased, and required IV fluid bolus. The patient did have elevated lactate as well. The patient did well on IV antibiotics. Her white count normalized. She did not have any further bandemia. Cultures were also obtained, and blood culture preliminary growing gram-negative leonard and preliminary urine culture showed mixed selma. Her sputum cultures showed 3+ staph coagulase positive Staph consistent with Staph aureus, the patient did end up having some hypoxia and needed to be on supplemental oxygen. The patient does use oxygen at the nursing facility for the past 6 months more or less throughout the day and the patient overall felt well. She was then cleared for discharge from surgical standpoint. She had been feeling significantly better, able to move to the bathroom and back. Activity: As tolerated. Fall precautions. Diet: Low-sodium, fluid-restricted diet. Followup: Follow up with primary care physician in 2-3 days. Return to ER for worsening condition. Repeat blood cultures once antibiotics are completed. Medications: As per medication reconciliation list. Physical Examination: General: Awake, alert, oriented x3, elderly female, appears older than stated age, obese. CV: S1 and S2. Pulses present. Respiratory: Moving air well bilaterally. Some diminished breath sounds at the bases. No wheezing or crackles. Gastrointestinal: Abdomen is soft, nontender, nondistended. Positive bowel sounds. Colostomy in place with stool. Extremities: No clubbing, cyanosis, or edema. Neurologic: Nonfocal. Total time spent discharging pt was 31 minutes. /JUAN Voice ID: [id number] Report ID: [id number] HARINI
== END 2018-07-28 14:45 | DRG 388 ==
LOC: ER 07:38 → ERHOLD 10:18 → 4TH 14:34
PROVIDERS: ADMIT Family Medicine; ATTEND Family Medicine
DX: K56.51 Intestinal adhesions [bands], with partial obstruction (principal); A41.50 Gram-negative sepsis, unspecified; I50.33 Acute on chronic diastolic (congestive) heart failure; R65.20 Severe sepsis without septic shock; N30.00 Acute cystitis without hematuria; N17.9 Acute kidney failure, unspecified; I13.0 Hypertensive heart and chronic kidney disease with heart failure and stage 1 through stage 4 chronic kidney disease, or unspecified chronic kidney disease; J98.11 Atelectasis; K52.9 Noninfective gastroenteritis and colitis, unspecified; R09.02 Hypoxemia; Z99.81 Dependence on supplemental oxygen; Z68.36 Body mass index [BMI] 36.0-36.9, adult; N18.3 Chronic kidney disease, stage 3 (moderate); F31.9 Bipolar disorder, unspecified; E03.9 Hypothyroidism, unspecified; Z88.0 Allergy status to penicillin; I25.2 Old myocardial infarction; E78.5 Hyperlipidemia, unspecified; F17.210 Nicotine dependence, cigarettes, uncomplicated; J44.9 Chronic obstructive pulmonary disease, unspecified; E66.01 Morbid (severe) obesity due to excess calories; Z93.3 Colostomy status
CPT/HCPCS: 36415; 71045; 74176; 80048; 80053; 80076; 81003; 81015; 83605; 83690; 83735; 84100; 84145; 85025; 87040; 87070; 87077; 87086; 87088; 87186; 87205; 87493; 93005; 94640; 94760; 96360; 97163; 99285; J0744; J1940; J7030